=== PATIENT | female | born 2000 | race African-American/Black ===

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

== ENCOUNTER 2019-12-17 12:35 | Emergency (ER) | payer SELFPAY | END 2019-12-17 14:24 | disposition home or self-care (01) | LOC: ERS 12:35 | DX: B00.89 Other herpesviral infection (principal) | CPT/HCPCS: 99282 ==

== ENCOUNTER 2020-09-07 08:07 | Emergency (ER) | payer SELFPAY ==
[2020-09-07 13:41] LABS: SARS-CoV-2 PCR by NAA Not Detected (NotDetected)
== END 2020-09-07 09:03 | disposition home or self-care (01) ==
LOC: ERS 08:07
DX: R05 Cough (principal); J02.9 Acute pharyngitis, unspecified; R50.9 Fever, unspecified; Z20.822 Contact with and (suspected) exposure to COVID-19
CPT/HCPCS: 87635; 99283; U0003; U0005